=== PATIENT | female | born 1980 | race Hispanic/Latino ===

== ENCOUNTER 2022-05-04 04:15 | Emergency (ER) | payer OTHER, SELFPAY ==
[2022-05-04] MEDS ORDERED: Ondansetron PF 4 MG/2 ML Vial ONE (04:41)
[2022-05-04] MEDS ORDERED: Morphine 4 MG/ML VIAL ONE (04:41)
[2022-05-04] MEDS ORDERED: Aspirin Chewable 81 MG TAB ONE (07:39)
== END 2022-05-04 09:10 | disposition home or self-care (01) ==
LOC: ERS 04:15
DX: S12.400A Unspecified displaced fracture of fifth cervical vertebra, initial encounter for closed fracture (principal); S00.81XA Abrasion of other part of head, initial encounter; I10 Essential (primary) hypertension; V89.2XXA Person injured in unspecified motor-vehicle accident, traffic, initial encounter
CPT/HCPCS: 96374; 96375; J2270; J2405